=== PATIENT | female | born 1965 | race Caucasian/White ===

== ENCOUNTER 2019-11-16 13:24 | Emergency (ER) | payer OTHER ==
[~2019-11-16] VITALS: Ht 152.4 cm; Wt 59.0 kg
[~2019-11-16 13:24] MED LIST: COZAAR100 MG; KETO10TA2 PO; TOPROL XL25 MG; TOPROL XL50 M1
[2019-11-16] MEDS ORDERED: CRESTOR5 MG PO (13:41)
== END 2019-11-16 17:29 | disposition home or self-care (01) ==
LOC: ER 13:24
DX: I16.0 Hypertensive urgency (principal); I10 Essential (primary) hypertension

== ENCOUNTER 2023-01-16 14:28 | Emergency (ER) | payer OTHER ==
[~2023-01-16] VITALS: Ht 152.4 cm; Wt 59.4 kg
[~2023-01-16 14:28] MED LIST changes: +CRESTOR5 MG PO
[2023-01-16] MEDS ORDERED: TOPROL XL25 M1 PO (15:10)
== END 2023-01-16 17:32 | disposition home or self-care (01) ==
LOC: ER 14:28
DX: R00.2 Palpitations (principal)

== ENCOUNTER 2023-09-16 16:13 | Emergency (ER) | payer OTHER ==
[~2023-09-16] VITALS: Ht 160 cm; Wt 76.2 kg
[~2023-09-16 16:13] MED LIST changes: +TOPROL XL25 M1 PO
== END 2023-09-16 17:51 | disposition home or self-care (01) ==
LOC: ER
DX: M54.2 Cervicalgia (principal)

== ENCOUNTER 2024-09-07 08:04 | Emergency (ER) | payer OTHER ==
[~2024-09-07] VITALS: Ht 162.6 cm; Wt 60.8 kg
[2024-09-07] MEDS ORDERED: LEVALBUTEROL HCL 1.25 MG/3 ML SOLUTION IH STA (09:34)
[2024-09-07] MEDS ORDERED: BUDESONIDE 0.5 MG/2 ML AMPUL.NEB IH STA (09:34)
[2024-09-07] MEDS ORDERED: HYDROCODONE/CHLORPHEN P-STIREX 5 ML ML PO STA (09:35)
[2024-09-07 10:10] LABS: HEMATOCRIT 42.1 % (36.0-45.00); HEMOGLOBIN 14.5 g/dL (12.0-15.00); MEAN CELL VOLUME 88.5 fL (80.00-100.00); MEAN CORPUSCULAR HEMOGLOBIN 30.5 pg (27.00-32.0); MEAN CORPUSCULAR HGB CONC 34.5 g/dl (32.0-36.0); PLATELET COUNT 147 K/uL (150-450); RED BLOOD COUNT 4.76 M/uL (4.00-6.00); RED CELL DISTRIBUTION WIDTH 13.3 % (11.5-14.5)
[2024-09-07 10:12] LABS: URINE APPEARANCE Clear; URINE BILIRRUBIN Negative (NEGATIVE); URINE BLOOD Small; URINE COLOR Yellow; URINE GLUCOSE Negative (NEGATIVE); URINE KETONE Negative (NEGATIVE); URINE LEUKOCYTE Trace; URINE NITRATE Negative; URINE PROTEIN Negative (NEGATIVE); URINE UROBILINOGEN 0.2 E.U./dl
[2024-09-07 10:19] LABS: URINE WBC 10.6 uL (0.0-23.2)
[2024-09-07 10:53] LABS: CALCIUM 9.5 mg/dL (8.5-10.1); CREATININE SERUM 0.73 mg/dL (0.55-1.02); GFR 81.05; POTASSIUM 4.35 mEq/L (3.5-5.1)
== END 2024-09-07 12:00 | disposition home or self-care (01) ==
LOC: ER 08:06
PROVIDERS: General Practice
DX: J40 Bronchitis, not specified as acute or chronic (principal); R53.83 Other fatigue; I10 Essential (primary) hypertension; Z20.822 Contact with and (suspected) exposure to COVID-19

== ENCOUNTER 2025-02-12 13:01 | Emergency (ER) | payer OTHER ==
[~2025-02-12] VITALS: Ht 152.4 cm; Wt 62.1 kg
[2025-02-12] MEDS ORDERED: KETOROLAC TROMETHAMINE 15 MG VIAL IM STA (14:55)
[2025-02-12] MEDS ORDERED: DEXAMETHASONE SODIUM PHOSPHATE 4 MG/ML VIAL IM STA (14:56)
[2025-02-12] MEDS ORDERED: KETOROLAC TROMETHAMINE 30 MG VIAL ONE (15:14)
[2025-02-12] MEDS ORDERED: DEXAMETHASONE SODIUM PHOSPHATE 4 MG/ML VIAL ONE (15:14)
[2025-02-12] MEDS ORDERED: DICLOFENAC SODI75 MG PO (17:33)
[2025-02-12] MEDS ORDERED: BACLOFEN10 MG PO (17:33)
== END 2025-02-12 18:35 | disposition home or self-care (01) ==
LOC: ER 13:02
DX: G89.11 Acute pain due to trauma (principal); M54.59 Other low back pain; M62.838 Other muscle spasm; I10 Essential (primary) hypertension